=== PATIENT | male | born 1985 | race Caucasian/White ===

== ENCOUNTER 2023-11-14 20:40 | Emergency (ER) | payer BC ==
[~2023-11-14] VITALS: Ht 172.7 cm; Wt 90.7 kg
[2023-11-14 21:17] VITALS: BP_SYST 136; PULSE 100; RESP 16; TEMP 98.5; O2SAT 97
[2023-11-14] MEDS: BACITRACIN 1 GM OINT TP ONE (22:19)
== END 2023-11-14 21:35 | disposition home or self-care (01) ==
LOC: SED 20:40
DX: S61.411A Laceration without foreign body of right hand, initial encounter (principal); Z79.899 Other long term (current) drug therapy; W25.XXXA Contact with sharp glass, initial encounter; Y93.89 Activity, other specified; Y92.89 Other specified places as the place of occurrence of the external cause; Y99.8 Other external cause status
CPT/HCPCS: 99284

== ENCOUNTER 2023-12-08 16:20 | Emergency (ER) | payer BC ==
[~2023-12-08] VITALS: Ht 172.7 cm; Wt 87.1 kg
[2023-12-08 16:42] VITALS: BP_SYST 135; PULSE 90; RESP 18; TEMP 98; O2SAT 100
[2023-12-08 17:46] LABS: BILIRUBIN,URINE NEGATIVE (NEGATIVE); BLOOD, URINE NEGATIVE (NEGATIVE); CLARITY/URINE CLEAR (CLEAR); COLOR,URINE YELLOW (YELLOW); GLUCOSE,URINE NEGATIVE (NEGATIVE); KETONES,URINE TRACE (NEGATIVE); LEUKOCYTE ESTERASE ,URINE TRACE (NEGATIVE); NITRITE, URINE NEGATIVE (NEGATIVE); PROTEIN URINE TRACE (NEGATIVE); UROBILINOGEN,URINE 0.2 (0.2-1.0)
[2023-12-08 18:07] LABS: BACTERIA,URINE FEW /HPF (None Seen); RBC,URINE 0-3 /HPF (0-3)
[2023-12-08 18:09] LABS: CALCIUM OXALATE CRYSTALS,UR 0-10 /HPF (None Seen)
[2023-12-08] MEDS ORDERED: NITR-85 PO (18:26)
[2023-12-08] MEDS ORDERED: PHEN-726 PO (18:26)
[2023-12-08 18:35] VITALS: BP_SYST 136; PULSE 88; RESP 18; TEMP 97.8; O2SAT 98
== END 2023-12-08 18:35 | disposition home or self-care (01) ==
LOC: SED 16:20
DX: R30.0 Dysuria (principal); R39.198 Other difficulties with micturition; R10.30 Lower abdominal pain, unspecified; Z79.899 Other long term (current) drug therapy
CPT/HCPCS: 81000; 81001; 81015; 87086; 99283